=== PATIENT | female | born 1970 | race Caucasian/White ===

== ENCOUNTER → 2016-06-10 | Outpatient (CLI) | payer BC | LOC: FIMAGING 12:28 | PROVIDERS: ATTEND Obstetrics & Gynecology | DX: N83.02 Follicular cyst of left ovary (principal) ==

== ENCOUNTER 2016-07-02 06:02 | Day surgery (SDC) | payer BC ==
[2016-07-02] MEDS ORDERED: LIDOCAINE 1% 5 ML SDV ONE (06:18)
[2016-07-02] MEDS ORDERED: SURGIFLO MATRIX KIT WITH THROMBIN TP ONE (06:58)
[2016-07-02] MEDS ORDERED: METHYLENE BLUE 0.5% 50 MG/10 ML AMP ONE (06:58)
[2016-07-02] MEDS ORDERED: BUPIVACAINE 0.25% 30 ML SDV ONE (06:58)
[2016-07-02] MEDS ORDERED: SILVER NITRATE APPLICATOR 1 APPL TP ONE (06:59)
[2016-07-02] MEDS ORDERED: MIDAZOLAM 2 MG/2 ML VIAL ONE (07:18)
[2016-07-02] MEDS ORDERED: fentaNYL 100 MCG/2 ML INJ ONE ×2 (07:20→08:56)
[2016-07-02] MEDS ORDERED: SCOPOLAMINE HYDROBROMIDE 1.5 MG PATCH TD ONE ×2 (07:21→07:30)
[2016-07-02] MEDS ORDERED: PROPOFOL 200 MG/20 ML VIAL ONE (07:23)
[2016-07-02] MEDS ORDERED: HYDROCODONE/APAP 5/325 TAB ONE ×2 (10:17→11:03)
--- NOTE | 2016-07-02 15:13 | GOP ---
[f rep st] OPERATIVE REPORT DATE OF OPERATION: 07/02/2016 SURGEON: Carito Espinoza MD SHIPPING ROOM HELPER: Lillian Schmidt MD. ANESTHESIA: General with ET tube. ANESTHESIOLOGIST: Hamilton Avalos MD PREOPERATIVE DIAGNOSIS: Undesired fertility. POSTOPERATIVE DIAGNOSIS: Undesired fertility. PROCEDURE PERFORMED: Laparoscopic bilateral salpingectomy. FINDINGS: Normal intraabdominal cavity, normal uterus and bilateral ovaries and tubes. Both tubes completely removed. SPECIMENS: Bilateral Fallopian tubes. ESTIMATED BLOOD LOSS: Less than 10 mL. INDICATIONS: Patient is a 45-year-old, G6, P3124 who has had 4 prior children including one 3 years ago. She presented to the office stating that she would like surgical intervention for sterility. Her has a history of a vasectomy that was previously reversed so that they could have more children, and now they are certain that they are not interested in more children. We discussed the risks and benefits. We also discussed all the alternative control options, but she prefers to proceed with definitive salpingectomy. DESCRIPTION OF PROCEDURE: Patient was brought to the operating room, and a time -out was performed. General anesthesia with ET tube was induced. She was placed in dorsal lithotomy position and was prepped and draped in the normal sterile fashion. A Harry catheter was placed. A final time-out was performed. The umbilicus was injected with 5 mL of 0.25% plain Marcaine. Two attempts were made with the Veress needle; however, as the opening pressure was elevated to 13 mm Hg, it was not consistent with intraperitoneal entry, so the decision was made to proceed with an open abdominal entry. A 10 mm incision was made in the skin. The fascia was grasped with Cammy's and entered sharply with a 15 blade. The fascia was tagged with 0 Vicryl. The peritoneum was opened bluntly , and the 10 mm Keegan port was placed. The abdomen was insufflated to 15 mmHg. The patient was placed in Trendelenburg. No intraabdominal injuries were noted. The findings were as noted above. Two additional ports were placed in the right and left lower quadrants under direct visualization after injection of anesthetic. The right fallopian tube was grasped at the fimbria, and the PK gyrus was used to serially clamp, cauterize, and transect the underlying mesosalpinx all the way to the cornua where the tube was then cross clamped and completely transected. The same procedure was done on the left. Both tubes removed completely intact. Hemostasis was noted at this time. All ports were removed, and instruments were removed. The fascia of the 10 mm incision was closed with 0 Vicryl. The skin was closed with 4-0 Monocryl followed by a covering of Dermabond. All instruments removed from the vagina, and the Harry catheter was removed. The patient was awakened and was in stable condition. Counts were correct x2. COMPLICATIONS: None. FLUIDS: 900 mL normal saline. URINE OUTPUT: 10 mL via Harry. /[id number]/MODL MTDD
== END 2016-07-02 11:10 | disposition home or self-care (01) ==
LOC: FSGY 06:02
PROVIDERS: ATTEND Obstetrics & Gynecology
PROC: 0UT24ZZ Resection of Bilateral Ovaries, Percutaneous Endoscopic Approach (ICD-10-PCS; principal; 2016-07-02 07:30)
DX: Z30.2 Encounter for sterilization (principal); I10 Essential (primary) hypertension; F32.9 Major depressive disorder, single episode, unspecified
CPT/HCPCS: J2250; J2704; J3010; Q9968

== ENCOUNTER → 2016-07-22 | Outpatient (CLI) | payer BC | LOC: FIMAGING 13:07 | PROVIDERS: ATTEND Midwife | DX: R10.2 Pelvic and perineal pain (principal); Z98.51 Tubal ligation status ==